=== PATIENT | male | born 1945 | race Caucasian/White ===

== ENCOUNTER 2024-02-29 21:39 | Inpatient (IN) | payer MEDICARE, SELFPAY ==
[2024-02-29] VITALS (14 sets, daily range): BP systolic 123–176; BP diastolic 66–145; PULSE 65–112; RESP 14–22; TEMP 37; O2SAT 93–96
--- NOTE | 2024-02-29 21:45 | RT.EKG_ITS ---
APPROVED REPORT Exam: Resting ECG Reason for Exam: weakness Patient Location: E HR:95 bpm ECG Measurements Heart Rate 95 AXIS PA 150 P 75 QRSd 81 QRS 73 QT 372 T 89 QTc 455 Conclusion Sinus rhythm...normal P axis, V-rate 60- 99 Anteroseptal infarct, age indeterminate...Q >35mS, T neg, V1-V2 Physician: no stemi, atypical minimal St depression in II, III, AVF
[2024-02-29 22:01] LABS: Abs Immature Grans 0.07 10^3/uL (0.0-0.06); Absolute Neutrophil Count 8.57 10^3/uL (1.2-6.7); HCT 45.8 % (40.0-50.0); HGB 15.4 g/dL (13.5-17.5); Immature Grans % 0.7; Lymphocytes % 7.2; MCH 29.2 pg (27.0-33.0); MCHC 33.6 % (32.0-36.0); MCV 87 fL (80-95); MPV 9.4 fL (8.0-11.0); Monocytes % 4.1; Platelet Count 233 10^3/uL (130-400); RBC 5.27 10^6/uL (4.36-5.78); RDW 12.7 % (11.8-14.1); RDW-SD 40.2 fL; WBC 9.74 10^3/uL (4.4-10.8)
[2024-02-29] MEDS: Prochlorperazine 10 MG/2 ML VIAL 5 MG IVP ×2 (22:01→23:15)
[2024-02-29] MEDS: Lactated Ringers 1,000 ML 1000 ML IV ×2 (22:01→23:15)
[2024-02-29] MEDS: fentaNYL 100 MCG/2 ML VIAL 50 MCG IVP (22:04)
[2024-02-29 22:18] LABS: ALT 29 U/L (16-63); AST 28 U/L (15-37); Albumin 4.3 g/dL (3.4-5.0); Alkaline Phosphatase 92 U/L (46-116); Anion Gap 15.6 mmol/L (3-11); BUN 41 mg/dL (7-18); Bilirubin, Total 0.9 mg/dL (0.2-1.0); CO2 27.4 mmol/L (21.0-32.0); CREATININE 2.2 mg/dL (0.70-1.30); Calcium 9.8 mg/dL (8.5-10.1); Chloride 98 mmol/L (98-107); Estimated GFR 29.91 (mL/min/1.73m2); Glucose 210 mg/dL (74-106); Lipase 36 U/L (16-77); Magnesium 1.8 mg/dL (1.8-2.4); Potassium 3.8 mmol/L (3.5-5.1); Sodium 141 mmol/L (136-145); Total Protein 9.1 g/dL (6.4-8.2)
[2024-02-29 22:19] LABS: Troponin I 162 ng/L (< or =60)
--- NOTE | 2024-02-29 22:19 | DI.CT_ITS ---
Exam(s) CT THORAX ABDOMEN CTA EXAM: CT THORAX ABDOMEN CTA CLINICAL HISTORY: evaluate for aneurysm or additional abdominal path. TECHNIQUE: Imaging Protocol: Axial CT angiography was performed with multi-slice acquisition and m ulti-planar and/or 3D reconstructions. CONTRAST MATERIAL: Intravenous: Omnipaque 350 contrast volume:65 mL Oral: No COMPARISON: No exams were available for comparison FINDINGS: The examination is limited due to patient motion artifact. CHEST: Tracheobronchial tree: Patent where visualized. Pulmonary parenchyma: Moderately severe centrilobular emphysematous changes are present. Calcified g ranuloma are present. There is scarring in the lung apices, right greater than left. No focal conso lidating infiltrates are seen. Pulmonary Arteries: The pulmonary arteries are not opacified adequately to assess for pulmonary embol i. The the bolus timing was aimed for maximum aortic opacification. Mediastinum and Hallie: No dominant adenopathy or fluid collection. The esophagus is unremarkable. Visualized thyroid: Unremarkable. Pleura: No effusion or pneumothorax. Heart: The heart is not dilated. Coronary artery calcifications are present. No pericardial effusion . Aorta: The ascending thoracic aorta measures 4.3 x 4.1 cm. Atherosclerotic calcification is present. There is no evidence of dissection. Soft Tissues: Unremarkable. Bones: Within normal limits for the patient's age. ABDOMEN: Abdomen: Celiac axis/mesenteric arteries: No evidence of occlusion or significant stenosis. Renal Arteries: No evidence of occlusion or significant stenosis. Mild atherosclerosis at the origin of the right renal artery. Aorta: No evidence of occlusion or significant stenosis. No aneurysm or dissection. Atheroscleroti c calcification is present. There is tortuosity of the abdominal aorta distally. Pelvis: Iliac Arteries: No evidence of occlusion or significant stenosis. Atherosclerotic calcification is present. ABDOMEN: Liver: Normal density. No measurable mass. Gallbladder and Biliary Tract: No radiodense calculus or dilation. Pancreas: Normal density, no abnormal calcifications or inflammatory process. Spleen: Normal. Adrenals: No masses seen. Kidneys: Normal size, contour and axis. 2 mm nonobstructing stone in the superior pole of the right k idney. No masses seen. Bowel: There are dilated small bowel loops throughout the visualized abdomen. Air-fluid levels are p resent throughout. The stomach is moderately distended. The visualized colon is of normal caliber. There is mild bowel wall thickening of loops of small bowel in the central abdomen. No pneumatosis. Peritoneal Cavity: No ascites, collection or mesenteric inflammatory response. No free air. Lymph Nodes: Within normal limits. Bones: Within normal limits for the patient's age. Soft Tissues: Unremarkable. IMPRESSION: 1. No evidence of aortic dissection. 2. Dilated ascending thoracic aorta measuring 4.3 x 4.1 cm. 3. Dilated small bowel loops with air-fluid levels suspicious for small bowel obstruction. RADIATION DOSE DELIVERED: Total DLP DATA REPOSITORY: All CT scans at this facility are submitted to the National Radiology Data Registry (NRDR) Dose Index Registry (DIR) with the [employer] (ACR). RADIATION OPTIMIZATION: All CT scans at this facility use at least one of these dose optimization te chniques: automated exposure control; mA and/or kV adjustment per patient size (includes targeted exa ms where dose is matched to clinical indication); or iterative reconstruction.
[2024-02-29] MEDS: Omnipaque 350 MG/ML 100 ML BTL IJ (22:31)
[2024-02-29] MEDS: Normal Saline - Diluent 50 ML VIAL IJ (22:32)
[2024-02-29 22:37] LABS: COVID-19 PCR Negative (Negative); Influenza A PCR Negative (Negative); Influenza B PCR Negative (Negative); RSV PCR Negative (Negative)
[2024-02-29 22:39] LABS: Source Nasopharynx
--- NOTE | 2024-02-29 22:58 | ED.GENADUL_ITS ---
Discharge Plan Disposition Patient Disposition: Admit to [facility] Condition: Improving Discharge Details Clinical Impression: Small bowel obstruction, Non-ST elevation MD (NSTEMI), Acute kidney injury, Elevated LDH, Dehydration Admit Date/Time: 03/01/24 02:18 Admit Provider: Manju Mcgrath Attending Provider: Manju Mcgrath Primary Care Provider: None,None ED Provider: Weston Hull Discharge Data Discharge Date/Time-TO BE ENTERED AT DEPARTURE: 03/01/24 03:40 HPI General Date/Time Provider Initiated Documentation: 02/29/24 21:45 . HPI Narrative: This 78-year-old male presents with report of epigastric and abdominal pain which started 24 hours ago and has had nausea vomiting and diarrhea. States 3 episodes of diarrhea today, multiple episodes of vomiting. Patient states prior history of appendectomy. Denies any chest pain or shortness of breath. States has been vomiting for approximately 24 hours denies any blood in vomitus. Denies any fever or chills. Denies known sick contacts. Does not smoke, drink, or use any illicit drugs. Does not currently have a healthcare provider. Denies prior history of coronary artery disease. Denies any recent flights, surgeries, long drives, calf pain or swelling or history of coagulopathy. Related Data Home Medications Medication Instructions Recorded Confirmed aspirin 81 mg chewable tablet 81 mg PO DAILY 02/29/24 02/29/24 (Marika Chewable Low Dose Aspirin) multivitamin (Daily Multi-Vitamin 1 tab PO DAILY 02/29/24 02/29/24 tablet) omega 3-vzc-qkj-fish oil 1,000 mg 1 cap PO DAILY 02/29/24 02/29/24 (120 mg-180 mg) capsule (Fish Oil) saw palmetto 320 mg capsule See Rx Instructions PO DAILY 02/29/24 02/29/24 Allergies Allergy/AdvReac Type Severity Reaction Status Date / Time isoniazid Allergy Unknown Other (See Verified 02/29/24 21:59 Comment) Penicillins Allergy Unknown Hives Verified 02/29/24 21:59 General Stated Complaint: Abd Prob SAURABH: 3 Course Vital Signs Vital signs: Vital Signs Temperature 37.0 C 02/29/24 21:48 Pulse 99 H 02/29/24 21:48 Respiratory Rate 19 02/29/24 21:48 Blood Pressure 130/79 02/29/24 21:48 Pulse Oximetry 96 02/29/24 21:48 Temperature 37.0 C 02/29/24 22:24 Temperature Source Temporal Artery Scan 02/29/24 22:24 Pulse 82 02/29/24 22:24 Respiratory Rate 22 02/29/24 22:24 Respiratory Effort Normal, Non-Labored 02/29/24 22:12 Blood Pressure 123/86 02/29/24 22:24 Blood Pressure Position Supine 02/29/24 22:24 Pulse Oximetry 93 02/29/24 22:24 Oxygen Delivery Method Room Air 02/29/24 22:24 Oxygen Flow Rate 0 02/29/24 21:48 Pain Level 8 02/29/24 22:24 Lab/Test Results Lab/Test Results: Laboratory Tests Range/Units 02/29/24 21:52 WBC (4.4-10.8) 10^3/uL 9.74 RBC (4.36-5.78) 10^6/uL 5.27 Hgb (13.5-17.5) g/dL 15.4 Hct (40.0-50.0) % 45.8 MCV (80-95) fL 87 MCH (27.0-33.0) pg 29.2 MCHC (32.0-36.0) % 33.6 RDW (11.8-14.1) % 12.7 Plt Count (130-400) 10^3/uL 233 MPV (8.0-11.0) fL 9.4 Immature Gran % 0.7 Neutrophils % 88.0 Lymphocytes % 7.2 Monocytes % 4.1 Eosinophils % 0.0 Basophils % 0.0 Nucleated RBC % (0.0-0.3) % 0.0 Absolute Neutrophils (1.2-6.7) 10^3/uL 8.57 H Absolute Lymphocytes (1.2-3.4) 10^3/uL 0.70 L Absolute Monocytes (0.1-0.8) 10^3/uL 0.40 Absolute Eosinophils (0.0-0.7) 10^3/uL 0.00 Absolute Basophils (0.0-0.2) 10^3/uL 0.00 Sodium (136-145) mmol/L 141 Potassium (3.5-5.1) mmol/L 3.8 Chloride (98-107) mmol/L 98 Carbon Dioxide (21.0-32.0) mmol/L 27.4 Anion Gap (3-11) mmol/L 15.6 H BUN (7-18) mg/dL 41 H Creatinine (0.70-1.30) mg/dL 2.2 H Est GFR (CKD-EPI 2020) (mL/min/1.73m2) 29.91 Glucose (74-106) mg/dL 210 H Calcium (8.5-10.1) mg/dL 9.8 Magnesium (1.8-2.4) mg/dL 1.8 Total Bilirubin (0.2-1.0) mg/dL 0.9 AST (15-37) U/L 28 ALT (16-63) U/L 29 Alkaline Phosphatase (46-116) U/L 92 Troponin I (< or =60) ng/L 162 H* Total Protein (6.4-8.2) g/dL 9.1 H Albumin (3.4-5.0) g/dL 4.3 Lipase (16-77) U/L 36 COVID-19 Source Nasopharynx SARS-CoV-2 (PCR) (Negative) Negative Influenza Type A (PCR) (Negative) Negative Influenza Type B (PCR) (Negative) Negative RSV (PCR) (Negative) Negative Medical Decision Making This 78-year-old male presents with report of abdominal and epigastric pain that started yesterday. He started vomiting all day and has not been able to eat or drink anything, this was followed by 3 episodes of diarrhea today States he is in terrific pain Denies any chest pain or shortness of breath. States he is still nauseous last vomiting was several hours ago. Denies any blood in vomitus He is physically tender in his abdominal region, no peritonitis, guarding No CVA tenderness, cardiac rate rhythm regular, alert and oriented, dry mucous membranes orally, pupils equal round reactive to light and accommodation, alert and oriented x 4, no peripheral edema, no rashes or lesions noted, lungs clear to auscultation bilaterally CTA was ordered for further evaluation given sharp pain and elevated troponin to evaluate for abdominal aortic aneurysm or thoracic aortic aneurysm, this was negative for dissection per my review, there is evidence of a bowel obstruction, pending radiology overread Initial troponin was elevated at 162, I suspect this is secondary to demand ischemia although patient does have some ST abnormalities without a prior EKG to compare to, again patient does not endorse any chest discomfort Will trend troponin, repeat at [address] NG tube and admit to the hospital provided the troponin does not continue to elevate Pending radiology interpretation, NG tube ordered for likely bowel obstruction, will hold on talking surgery until repeat troponin after NG tube placed, will transition care to Dr. Jamey Hull pending repeat troponin at 0049 and virtual radiology interpretation of CT EKG with some depressions in aVL V5 and V6, 2 3 aVF, no prior to compare, no evidence of injury, no chest pain, please see attendings documentation Quality:SDOH Health Related Social Needs: Health related social needs risk of homeless Critical Care Time Critical Care Time Attestation: Approximately 45 minutes of critical care time secondary to acute bowel obstruction requiring NG tube placement,, none ST elevation MD secondary to demand ischemia secondary to acute illness with continue telemetry monitoring, repeat cardiac enzyme, and ultimately admission to the hospital can for continued monitoring, NG tube to suction, surgical consultation, hospitalist consultation, diagnostic review of labs, IV fluid resuscitation secondary to JAZZ PFSH All Active Problems (Updated 03/01/24 @ 14:05 by Manju Mcgrath DO) Hx MRSA infection (Acute) Elevated troponin I level (Acute) Thoracic aortic aneurysm without rupture (Acute) Aortic atherosclerosis (Acute) Bullous emphysema (Acute) COPD (chronic obstructive pulmonary disease) (Chronic) Dehydration (Acute) Elevated LDH (Acute) Acute kidney injury (Acute) Non-ST elevation MD (NSTEMI) (Acute) secondary to demand Small bowel obstruction (Acute) Surgical History (Updated 03/01/24 @ 13:11 by Manju Mcgrath DO) S/P appendectomy open appy for rupture and abscess Social History Smoking/Tobacco Use Status: Former Tobacco Use Quit Date: 11/19/11 Smoking risk assessment performed?: Yes Alcohol Intake: never Drug use: Daily Substance use type: marijuana Housing: house Do you feel safe at home: Yes Do you feel safe in your relationship?: Yes Sign Out Sign Out Data: Sign Out Comment: SBO, pending repeat trop at 0049, ng tube, and admission Last updated by Mary Ku PA at 02/29/24 23:32
--- NOTE | 2024-02-29 23:23 | DI.VRAD_ITS ---
Addendum created by Kishor Shepherd MD on 02/29/2024 11:37:56 PM EDT: THIS REPORT CONTAINS FINDINGS THAT MAY BE CRITICAL TO PATIENT CARE. The findings were verbally communicated via telephone conference with Mary Ku at 11:24 PM EDT on 02/29/2024. The findings were acknowledged and understood. Initial report created on 02/29/2024 11:23:07 PM EDT: PROCEDURE INFORMATION: Exam: CTA Chest With Contrast CTA Abdomen With Contrast Exam date and time: 02/29/2024 10:40 PM Age: 78 years old Clinical indication: N/v, abd pain; R/O dissection; Evaluate for aneurysm or additional abdominal path TECHNIQUE: Imaging protocol: Computed tomographic angiography of the chest with contrast. Exam focused on the arteries. Computed tomographic angiography of the abdomen with contrast. Exam focused on the arteries. 3D rendering (Not supervised by radiologist): MIP and/or 3D reconstructed images were created by the technologist. Contrast material: OMNI 350; Contrast volume: 65 ml; Contrast route: INTRAVENOUS (IV); COMPARISON: No relevant prior studies available. FINDINGS: VASCULATURE: Pulmonary arteries: The pulmonary arterial system is suboptimally opacified with I.V. contrast. While no definite central pulmonary emboli are appreciated, pulmonary emboli in the distal lobar and segmental branches cannot be reliably excluded on the basis of this study. Contrast density measurement within the main pulmonary artery is 80 HU. Aorta: Normal caliber thoracic / abdominal aorta without dissection or aneurysm. Celiac trunk and mesenteric arteries: No occlusion or significant stenosis. Renal arteries: No occlusion or significant stenosis. CHEST: Lungs: No alveolar or ground glass infiltrate. Evidence of old granulomatous disease. Centrilobular emphysema. Pleural spaces: No pleural fluid collection. No pneumothorax. Heart: No pericardial effusion. ABDOMEN AND PELVIS: Liver: Liver fatty infiltration. Gallbladder and bile ducts: Unremarkable. No calcified stones. No ductal dilation. Pancreas: Minimally prominent to mm caliber pancreatic duct, otherwise normal pancreas. Spleen: Unremarkable. No splenomegaly. Adrenal glands: Unremarkable. No mass. Kidneys and ureters: No hydronephrosis. Small non-obstructing calcified stone upper pole right kidney. No perinephric stranding or perinephric fluid. Stomach and bowel: Numerous fluid-filled, dilated (up to 3.5 cm caliber) small bowel loops) - likely small bowel obstruction. Non-dilated colon. Intraperitoneal space: Please note that the peritoneal cavity is incompletely-imaged (only CTA abdomen was performed). No abdominal free air or free fluid. Numerous fluid-filled, dilated (up to 3.5 cm caliber) small bowel loops) - likely small bowel obstruction. Lymph nodes: No enlarged lymph nodes. Bones/joints: Mild spinal degenerative changes. Scoliosis. Soft tissues: Unremarkable. IMPRESSION: 1. Normal caliber thoracic / abdominal aorta without dissection or aneurysm. 2. Suboptimal IV contrast opacification of the pulmonary arterial system. No central pulmonary emboli are seen but more distal emboli cannot be reliably excluded by this study. 3. No pulmonary infiltrate or pleural fluid collection.. 4. Centrilobular emphysema. 5. Please note that the peritoneal cavity is incompletely-imaged (only CTA abdomen was performed). Numerous fluid-filled, dilated (up to 3.5 cm caliber) small bowel loops) - likely small bowel obstruction. 6. No hydronephrosis. Small non-obstructing calcified stone upper pole right kidney. Dictated and Authenticated by: Kishor Shepherd MD. Ordering:RADHA Hernandez MD
[2024-02-29 23:24] LABS: Lactate 4.7 mmol/L (0.6-1.4)
[2024-03-01] VITALS (35 sets, daily range): BP systolic 95–135; BP diastolic 38–94; PULSE 70–117; RESP 13–28; TEMP 36.1–37.1; O2SAT 90–97
--- NOTE | 2024-03-01 | DI.RAD_ITS ---
Exam(s) XR ABDOMEN FLAT PLATE EXAM: 2D digital imaging was performed. CLINICAL HISTORY: NGT placement. COMPARISON: CR,XR XR PORTABLE CHEST AP from 03/01/2024 TECHNIQUE: Supine views of the abdomen was performed. Two images were obtained. FINDINGS: LUNG BASES: Clear. BOWEL GAS PATTERN: Nondistended. FREE AIR: None. CALCIFICATIONS: No radiopaque calcifications. OSSEOUS STRUCTURES: There is a mild S-type thoracolumbar scoliosis. Degenerative changes are seen in the spine consistent with the patient's age. OTHER FINDINGS: The enteric tube has been advanced and the tip is now in the stomach. There is contr ast seen in the urinary bladder from the patient's recent CT examination. IMPRESSION: The tip of the enteric tube is now in good position within the stomach. DATA REPOSITORY: RADIATION DOSE DELIVERED:
--- NOTE | 2024-03-01 00:15 | DI.RAD_ITS ---
Exam(s) XR PORTABLE CHEST AP EXAM: XR PORTABLE CHEST AP CLINICAL HISTORY: post ng tube placement TECHNIQUE: 2D digital imaging was performed of the chest. Two images were obtained. AP views were obtained. COMPARISON: CT CT THORAX ABDOMEN CTA from 02/29/2024 FINDINGS: MEDIASTINUM: Normal. HEART: Normal. PULMONARY VASCULATURE: Normal. LUNGS: The lungs are hyperinflated consistent with underlying COPD. PLEURAL SPACE: No pleural effusion or pneumothorax. BONE:Within normal limits for the patient's age. OTHER FINDINGS:The tip of the nasogastric tube is seen above the hemidiaphragm in the distal esophagu s and should be repositioned. IMPRESSION: 1. No acute pulmonary findings. 2. The tip of the nasogastric tube is above the hemidiaphragm in the distal esophagus. It should be repositioned as it is not in the stomach. DATA REPOSITORY: RADIATION DOSE DELIVERED:
--- NOTE | 2024-03-01 00:44 | DI.VRAD_ITS ---
PROCEDURE INFORMATION: Exam: XR Chest Exam date and time: 03/01/2024 12:30 AM Age: 78 years old Clinical indication: Device placement; Post NG tube placement TECHNIQUE: Imaging protocol: Radiologic exam of the chest. Views: 1 view. COMPARISON: CT THORAX ABDOMEN CTA 02/29/2024 10:40 PM FINDINGS: Tubes, catheters and devices: Tip of nasogastric tube within the distal thoracic esophagus. Tube tip does not enter the gastric lumen. Cardiac leads superimposed over the chest. Lungs: No alveolar infiltrate. Right upper lobe calcified granulomas. COPD. Pleural spaces: No pleural fluid collection. No pneumothorax. Heart/Mediastinum: Normal heart size. Bones/joints: Unremarkable for patient age. IMPRESSION: 1. Tip of nasogastric tube within the distal thoracic esophagus. Tube tip does not enter the gastric lumen. 2. No active pulmonary disease. Dictated and Authenticated by: Kishor Shepherd MD. Ordering:SARBJIT Ontiveros MD
[2024-03-01] MEDS: Benzocaine 20% 60 ML CAN (00:52)
[2024-03-01] MEDS: Lactated Ringers 1,000 ML 200 ML IV (00:53)
[2024-03-01 00:54] LABS: Lactate 3.5 mmol/L (0.6-1.4)
[2024-03-01 01:04] LABS: Anion Gap 13.3 mmol/L (3-11); BUN 42 mg/dL (7-18); CO2 24.7 mmol/L (21.0-32.0); CREATININE 1.8 mg/dL (0.70-1.30); Chloride 101 mmol/L (98-107); Estimated GFR 38.05 (mL/min/1.73m2); Glucose 159 mg/dL (74-106); Potassium 4.1 mmol/L (3.5-5.1); Sodium 139 mmol/L (136-145)
[2024-03-01 01:15] LABS: Troponin I 205 ng/L (< or =60)
--- NOTE | 2024-03-01 01:49 | NUR.NOTE ---
Nursing Note: placed patient on 2L NC
[2024-03-01] MEDS: Prochlorperazine 10 MG/2 ML VIAL IVP (02:00)
[2024-03-01] MEDS: MORPHine 4 MG/ML SYR IVP (02:00)
[2024-03-01] MEDS: Aspirin 300 MG SUPP PR (02:21)
--- NOTE | 2024-03-01 02:23 | ED.PROG_ITS ---
Date of service: 03/01/24 Time of Service: 02:23 Medical Decision Making Patient was signed out to me by my colleague Mary Ku, please refer to HPI, physical exam, assessment and plan. At time of signout we are awaiting repeat troponin to evaluate for trend and reassessment after fluids. Patient has been given 2 L of fluids, NG tube was placed, initial NG tube was in the esophagus still, patient ripped this out. New NG tube was placed and is now suctioning stomach contents well. Patient is feeling much better. Repeat labs demonstrate an improvement of his lactate from 4.7-3.5, troponin has only mildly increased from 1 62-2 05. Creatinine after fluids is improved from 2.2-1.8. Patient is feeling much better at this time. Vital signs remained stable. EKG shows no evidence of STEMI. I did contact [facility] and discussed the case with cardiology. At this time after review of the case they feel to that this is likely just based on demand ischemia dehydration and his vomiting. Recommend continued close monitoring and serial troponins. Recommend full dose aspirin. They do not recommend heparinization at this time. I discussed the case with the hospitalist Dr. Lopez, and he agrees to be consulted for medicine consult for the NSTEMI component of the patient. I did contact the surgeon Dr. Mcgrath, she agrees for acceptance for admission for the patient. I will place bridging orders on her behalf. I have extensively reviewed the treatment plan with the patient. I have addressed all patient concerns at this time. I have also discussed the plan with the admitting physician and they agree with the current assessment and plan and have agreed to assume responsibility for the patient. All parties demonstrate verbal understanding and agreement with our assessment and plan at this time. The documentation in this chart was dictated using Narr[employer] dictation software. Please excuse any dictation errors. Quality:SDOH Health Related Social Needs: No Data to Display Critical Care Time Critical Care Time Critical Care Time: Yes Total Critical Care Time: 45 Attestation: Upon my evaluation, this patient had a high probability of imminent or life- threatening deterioration, which required my direct attention, intervention, and personal management. I have personally provided 45 minutes of critical care time exclusive of time spent on separately billable procedures. Time includes review of laboratory data, radiology results, discussion with consultants, and monitoring for potential decompensation. Interventions were performed as documented. Sign Out Sign Out Data: Sign Out Comment: SBO, pending repeat trop at 0049, ng tube, and admission Last updated by Mary Ku PA at 02/29/24 23:32 Discharge Plan Disposition Patient Disposition: Admit to [facility] Condition: Improving Discharge Details Chief Complaint: Abd Prob Clinical Impression: Small bowel obstruction, Non-ST elevation MA (NSTEMI), Acute kidney injury, Elevated LDH, Dehydration Primary Care Provider: None,None ED Provider: Weston Hull Home Meds and New Rx's Prescriptions: No Action aspirin [Marika Chewable Aspirin] 81 mg tablet,chewable 81 mg PO DAILY multivitamin [Daily Multi-Vitamin] Tablet 1 tab PO DAILY saw palmetto 320 mg capsule See Rx Instructions PO DAILY Rx Instructions: 640 orally daily; give with food (meal/snack) omega 7-tsx-wmo-fish oil [Fish Oil] 1,000 mg (120 mg-180 mg) capsule 1 cap PO DAILY
--- NOTE | 2024-03-01 03:16 | W.MEDCONSULT ---
Date of service: 03/01/24 Time of Service: 03:16 Assessment and Plan Assessment and plan (1) Small bowel obstruction: Start date: 03/01/24 Status: Acute Assessment and plan: This is a 78-year-old gentleman with acute onset of small bowel obstruction admitted under surgery for observation and possible intervention. This complicated by his lack of medical follow-up as an outpatient known cardiovascular status with elevated troponins and slightly abnormal EKG though not positive for STEMI. Continue to follow medically with surgery and treat as patient allows. (2) Non-ST elevation [place] (NSTEMI): Start date: 03/01/24 Status: Acute Assessment and plan: Full dose aspirin was given with Plavix not recommended and heparin recommended. Trend troponins and continue conversation with [facility] cardiology if rising troponins despite patient being more comfortable and asymptomatic at this time. Follow-up EKG if change in symptoms. Cardiac monitoring. Patient had at least an echocardiogram when available and further cardiovascular testing such as stress test when available. Patient is a full code. (3) Acute kidney injury: Start date: 03/01/24 Status: Acute Assessment and plan: IV hydration With Follow-Up Lab Trending Lactate and along with renal functions. Watch for fluid overload. 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 Has had multiple episodes of vomiting prior to presentation. He states that he has not slept for 3 days. Symptoms may have been going on longer than just 24 hours. He currently does not see a healthcare provider and denies any prior history of these problems. He did have an appendectomy with a ruptured appendix in the past which may attribute to adhesions with small bowel obstruction. He appears to have a small bowel obstruction by imaging and NG tube was placed with surgery admitting patient for observation and possible intervention if he is not resolved. Patient is very agitated with his lack of sleep and would not give further history or allow for exam. He was found to have elevated troponins in the ED with EKG showing sinus rhythm and possible old anterior scar with slight ST segment depressions inferiorly. There were no acute ST segment elevations. Initial troponin was 162 with repeat being 205. He is having his troponins trended with only a full dose aspirin given per rectum per recommendations of [facility] cardiology will advise no other antiplatelet therapy or heparin. It was thought that his troponins were elevated secondary to strain from his acute illness. He is not having chest pain or shortness of breath. He has no previous history of CAD. He is stressed also by acute kidney injury with creatinine elevated and lactic acidosis along with elevated anion gap. This is being corrected with IV fluid resuscitation by the admitting surgeon. Once the patient is small bowel function is resolving, he may have further evaluation of his cardiac status versus transfer to a tertiary care center if he becomes symptomatic with a small bowel obstruction. Not able to take oral therapy at this time but should consider metoprolol along with high-dose statin and daily baby aspirin. This time he is cardiovascularly stable and very upset with the fact that he has not slept and continues to be awake and interviews and treatment. He is a full code. Review of Systems Narrative: 13 point review of systems obtainable with patient refusing interview. PFSH All Active Problems Dehydration (Acute) Elevated LDH (Acute) Acute kidney injury (Acute) Non-ST elevation [place] (NSTEMI) (Acute) Small bowel obstruction (Acute) Social History Smoking/Tobacco Use Status: Former Tobacco Use Quit Date: 11/19/11 Smoking risk assessment performed?: Yes Alcohol Intake: never Drug use: Daily Substance use type: marijuana Housing: house Do you feel safe at home: Yes Do you feel safe in your relationship?: Yes Exam Narrative Exam Narrative: General: Patient is unkempt, thin and very agitated with being awakened. He has a bedsheet over his head. He appears to be alert and oriented to person, place and time. He is in moderate distress from the NG tube in place but does feel more comfortable with NG tube drainage. He refused any further physical exam. He appears very thin and malnourished. Results Last Vital Signs Temp 37.0 C 02/29/24 22:24 Pulse 93 H 03/01/24 02:46 Resp 18 03/01/24 03:00 BP 117/79 03/01/24 02:46 Pulse Ox 94 03/01/24 02:46 Labs 04/12/24 21:52 03/01/24 00:50 Labs: Laboratory Results - last 24 hr 02/29/24 02/29/24 03/01/24 21:52 23:16 00:50 WBC 9.74 RBC 5.27 Hgb 15.4 Hct 45.8 MCV 87 MCH 29.2 MCHC 33.6 RDW 12.7 Plt Count 233 MPV 9.4 Immature Gran % 0.7 Neutrophils % 88.0 Lymphocytes % 7.2 Monocytes % 4.1 Eosinophils % 0.0 Basophils % 0.0 Nucleated RBC % 0.0 Absolute Neutrophils 8.57 H Absolute Lymphocytes 0.70 L Absolute Monocytes 0.40 Absolute Eosinophils 0.00 Absolute Basophils 0.00 VBG Lactate 4.7 H* 3.5 H* Sodium 141 139 Potassium 3.8 4.1 Chloride 98 101 Carbon Dioxide 27.4 24.7 Anion Gap 15.6 H 13.3 H BUN 41 H 42 H Creatinine 2.2 H 1.8 H Est GFR (CKD-EPI 2020) 29.91 38.05 Glucose 210 H 159 H Calcium 9.8 9.0 Magnesium 1.8 Total Bilirubin 0.9 AST 28 ALT 29 Alkaline Phosphatase 92 Troponin I 162 H* 205 H* Total Protein 9.1 H Albumin 4.3 Lipase 36 COVID-19 Source Nasopharynx SARS-CoV-2 (PCR) Negative Influenza Type A (PCR) Negative Influenza Type B (PCR) Negative RSV (PCR) Negative Imaging Imaging Studies: Exam: CTA Chest With Contrast CTA Abdomen With Contrast Exam date and time: 02/29/2024 10:40 PM Age: 78 years old Clinical indication: N/v, abd pain; R/O dissection; Evaluate for aneurysm or additional abdominal path COMPARISON: No relevant prior studies available. FINDINGS: VASCULATURE: Pulmonary arteries: The pulmonary arterial system is suboptimally opacified with I.V. contrast. While no definite central pulmonary emboli are appreciated, pulmonary emboli in the distal lobar and segmental branches cannot be reliably excluded on the basis of this study. Contrast density measurement within the main pulmonary artery is 80 HU. Aorta: Normal caliber thoracic / abdominal aorta without dissection or aneurysm. Celiac trunk and mesenteric arteries: No occlusion or significant stenosis. Renal arteries: No occlusion or significant stenosis. CHEST: Lungs: No alveolar or ground glass infiltrate. Evidence of old granulomatous disease. Centrilobular emphysema. Pleural spaces: No pleural fluid collection. No pneumothorax. Heart: No pericardial effusion. ABDOMEN AND PELVIS: Liver: Liver fatty infiltration. Gallbladder and bile ducts: Unremarkable. No calcified stones. No ductal dilation. Pancreas: Minimally prominent to mm caliber pancreatic duct, otherwise normal pancreas. Spleen: Unremarkable. No splenomegaly. Adrenal glands: Unremarkable. No mass. Kidneys and ureters: No hydronephrosis. Small non-obstructing calcified stone upper pole right kidney. No perinephric stranding or perinephric fluid. Stomach and bowel: Numerous fluid-filled, dilated (up to 3.5 cm caliber) small bowel loops) - likely small bowel obstruction. Non-dilated colon. Intraperitoneal space: Please note that the peritoneal cavity is incompletely-imaged (only CTA abdomen was performed). No abdominal free air or free fluid. Numerous fluid-filled, dilated (up to 3.5 cm caliber) small bowel loops) - likely small bowel obstruction. Lymph nodes: No enlarged lymph nodes. Bones/joints: Mild spinal degenerative changes. Scoliosis. Soft tissues: Unremarkable. IMPRESSION: 1. Normal caliber thoracic / abdominal aorta without dissection or aneurysm. 2. Suboptimal IV contrast opacification of the pulmonary arterial system. No central pulmonary emboli are seen but more distal emboli cannot be reliably excluded by this study. 3. No pulmonary infiltrate or pleural fluid collection.. 4. Centrilobular emphysema. 5. Please note that the peritoneal cavity is incompletely-imaged (only CTA abdomen was performed). Numerous fluid-filled, dilated (up to 3.5 cm caliber) small bowel loops) - likely small bowel obstruction. 6. No hydronephrosis. Small non-obstructing calcified stone upper pole right kidney. Exam: XR Chest Exam date and time: 03/01/2024 12:30 AM Age: 78 years old Clinical indication: Device placement; Post NG tube placement TECHNIQUE: Imaging protocol: Radiologic exam of the chest. Views: 1 view. COMPARISON: CT THORAX ABDOMEN CTA 02/29/2024 10:40 PM FINDINGS: Tubes, catheters and devices: Tip of nasogastric tube within the distal thoracic esophagus. Tube tip does not enter the gastric lumen. Cardiac leads superimposed over the chest. Lungs: No alveolar infiltrate. Right upper lobe calcified granulomas. COPD. Pleural spaces: No pleural fluid collection. No pneumothorax. Heart/Mediastinum: Normal heart size. Bones/joints: Unremarkable for patient age. IMPRESSION: 1. Tip of nasogastric tube within the distal thoracic esophagus. Tube tip does not enter the gastric lumen. 2. No active pulmonary disease.
[2024-03-01] MEDS: Normal Saline Flush 10 ML SYR IVP ×3 (03:43→19:47)
[2024-03-01] MEDS: Ondansetron 4 MG/2 ML VIAL IVP (03:43)
[2024-03-01 06:03] LABS: Lactate 1.3 mmol/L (0.6-1.4)
[2024-03-01] MEDS: Normal Saline 1,000 ML 150 ML IV (06:08)
[2024-03-01 06:19] LABS: Anion Gap 7.7 mmol/L (3-11); BUN 45 mg/dL (7-18); CO2 30.3 mmol/L (21.0-32.0); CREATININE 1.8 mg/dL (0.70-1.30); Calcium 8.4 mg/dL (8.5-10.1); Chloride 103 mmol/L (98-107); Estimated GFR 38.05 (mL/min/1.73m2); Glucose 125 mg/dL (74-106); Magnesium 1.7 mg/dL (1.8-2.4); Potassium 4.2 mmol/L (3.5-5.1); Sodium 141 mmol/L (136-145)
[2024-03-01 06:39] LABS: Troponin I 265 ng/L (< or =60)
--- NOTE | 2024-03-01 07:30 | RT.EKG_ITS ---
APPROVED REPORT Exam: Resting ECG Reason for Exam: elevated troponin Patient Location: I HR:92 bpm ECG Measurements Heart Rate 92 AXIS FL 154 P 75 QRSd 79 QRS 74 QT 360 T 34 QTc 446 Conclusion Sinus rhythm...normal P axis, V-rate 50- 99 Atrial premature complexes...SV complexes w/ short R-R intvls Artifact in lead(s) II,III,aVR,aVL,aVF,V1,V2,V3,V5,V6
[2024-03-01 09:58] LABS: Troponin I 243 ng/L (< or =60)
[2024-03-01 12:09] LABS: Bilirubin Negative (Negative); Blood Trace-intact (Negative); Clarity Clear (Clear); Glucose Negative (Negative); Ketones Trace mg/dL (Negative); Leukocyte Esterase Negative (Negative); Nitrite Negative (Negative); Urobilinogen 0.2 mg/dL (Up to 0.2); pH 5.5 (5-8)
[2024-03-01 12:22] LABS: Epithelial Cells Rare HPF (Negative); WBC 0-2 HPF (0-5)
[2024-03-01 12:23] LABS: Bacteria Rare HPF (Negative); C & S Indicated? No; Casts 5-10 Hyaline LPF (Negative); Crystals Negative HPF (Negative); Mucus Trace (Negative)
--- NOTE | 2024-03-01 12:39 | W.PM.PROGNOT ---
Date of Service Date of service: 03/01/24 Time of Service: 12:39 Assessment and Plan Assessment and plan (1) Small bowel obstruction: Status: Acute Assessment and plan: medical management w/ NG drainage, surgerical service is handling this. So far no flatus yet. (2) Elevated troponin I level: Status: Acute Assessment and plan: abnormal troponin I elevation, [facility] cardiology was consulted yesterday and they feel that this is type II demand ischemia, repeat EKG did not show acute ischemia. He is asymptomatic, therefore I would defer any ischemic workup to outpatient. Because of the TAA, I will get TTE on Sunday. (3) Thoracic aortic aneurysm without rupture: Status: Acute Assessment and plan: 4.3 x 4.1 TAA, this needs outpatient follow up. Patient should be put on beta rd and statin and follow up CTA chest and echo in 6 months. I would get transthoracic echo either while here or upon discharge if none has been done in past year. Qualifiers: Thoracic aorta location: ascending aorta Qualified Code(s): I71.21 - Aneurysm of the ascending aorta, without rupture (4) Aortic atherosclerosis: Status: Acute (5) COPD (chronic obstructive pulmonary disease): Status: Chronic Qualifiers: COPD type: emphysema Emphysema type: unspecified Qualified Code(s): J43.9 - Emphysema, unspecified (6) Bullous emphysema: Status: Acute (7) Acute kidney injury: Status: Acute Assessment and plan: continue hydraton w/ LR, currently running at 80 mL/hr, continue iv fluid while he is NPO, when able to tolerate PO then will dc iv fluids. Subjective Subjective Interval history since last seen: Mr. Blake denies any CP or dyspnea. He says that he has no known CAD or CHF. He has hx of prior bowel perforation and laparotomy. He presented yesterday w/ acute SBO. CT chest and abdomen did show ascending TAA 4.3 cm. His troponin was elevated on admission to 162 and has risen overnight to 265 but is now on its way down as of 0930 am today. Repeat level is pending at 1335. Repeat EKG done this morning did not show any acute ST elevation or depression. He says that he is still not passing any flatus but his abdomen feels better since the NG was placed last night. [facility] cardiology was consulted last night by the ED provider and per my report from the heat transfer technician, [facility] cards felt that this is type II demand ischemia. Exam Narrative Exam Narrative: Hayden is a thin, elderly pony tailed male who is polite and conversant. He denies any pain or dyspnea Lungs: prolonged expiratory phase but no rhonchi or wheezing or rales Heart: RRR, but w/ extra systolic beats, no murmur Abdomen: scars from prior laparotomy, nontender NG draining bilious material Objective Last Vital Signs Temp 36.8 C 03/01/24 11:25 Pulse 84 03/01/24 11:25 Resp 18 03/01/24 11:25 BP 114/76 03/01/24 11:25 Pulse Ox 92 03/01/24 11:25 Laboratory Results - last 24 hr 02/29/24 02/29/24 03/01/24 21:52 23:16 00:50 WBC 9.74 RBC 5.27 Hgb 15.4 Hct 45.8 MCV 87 MCH 29.2 MCHC 33.6 RDW 12.7 Plt Count 233 MPV 9.4 Immature Gran % 0.7 Neutrophils % 88.0 Lymphocytes % 7.2 Monocytes % 4.1 Eosinophils % 0.0 Basophils % 0.0 Nucleated RBC % 0.0 Absolute Neutrophils 8.57 H Absolute Lymphocytes 0.70 L Absolute Monocytes 0.40 Absolute Eosinophils 0.00 Absolute Basophils 0.00 VBG Lactate 4.7 H* 3.5 H* Sodium 141 139 Potassium 3.8 4.1 Chloride 98 101 Carbon Dioxide 27.4 24.7 Anion Gap 15.6 H 13.3 H BUN 41 H 42 H Creatinine 2.2 H 1.8 H Est GFR (CKD-EPI 2020) 29.91 38.05 Glucose 210 H 159 H Calcium 9.8 9.0 Magnesium 1.8 Total Bilirubin 0.9 AST 28 ALT 29 Alkaline Phosphatase 92 Troponin I 162 H* 205 H* Total Protein 9.1 H Albumin 4.3 Lipase 36 Urine Color Urine Clarity Urine pH Ur Specific [place] Urine Protein Urine Ketones Urine Blood Urine Nitrite Urine Bilirubin Urine Urobilinogen Ur Leukocyte Esterase Urine RBC Urine WBC Ur Epithelial Cells Urine Crystals Urine Bacteria Urine Casts Urine Mucus Ur Culture Indicated? Urine Glucose COVID-19 Source Nasopharynx SARS-CoV-2 (PCR) Negative Influenza Type A (PCR) Negative Influenza Type B (PCR) Negative RSV (PCR) Negative 03/01/24 03/01/24 03/01/24 02:18 05:54 09:31 WBC RBC Hgb Hct MCV MCH MCHC RDW Plt Count MPV Immature Gran % Neutrophils % Lymphocytes % Monocytes % Eosinophils % Basophils % Nucleated RBC % Absolute Neutrophils Absolute Lymphocytes Absolute Monocytes Absolute Eosinophils Absolute Basophils VBG Lactate 1.3 Sodium 141 Potassium 4.2 Chloride 103 Carbon Dioxide 30.3 Anion Gap 7.7 BUN 45 H Creatinine 1.8 H Est GFR (CKD-EPI 2020) 38.05 Glucose 125 H Calcium 8.4 L Magnesium 1.7 L Total Bilirubin AST ALT Alkaline Phosphatase Troponin I Cancelled 265 H* 243 H* Total Protein Albumin Lipase Urine Color Urine Clarity Urine pH Ur Specific [place] Urine Protein Urine Ketones Urine Blood Urine Nitrite Urine Bilirubin Urine Urobilinogen Ur Leukocyte Esterase Urine RBC Urine WBC Ur Epithelial Cells Urine Crystals Urine Bacteria Urine Casts Urine Mucus Ur Culture Indicated? Urine Glucose COVID-19 Source SARS-CoV-2 (PCR) Influenza Type A (PCR) Influenza Type B (PCR) RSV (PCR) 03/01/24 11:40 WBC RBC Hgb Hct MCV MCH MCHC RDW Plt Count MPV Immature Gran % Neutrophils % Lymphocytes % Monocytes % Eosinophils % Basophils % Nucleated RBC % Absolute Neutrophils Absolute Lymphocytes Absolute Monocytes Absolute Eosinophils Absolute Basophils VBG Lactate Sodium Potassium Chloride Carbon Dioxide Anion Gap BUN Creatinine Est GFR (CKD-EPI 2020) Glucose Calcium Magnesium Total Bilirubin AST ALT Alkaline Phosphatase Troponin I Total Protein Albumin Lipase Urine Color Yellow Urine Clarity Clear Urine pH 5.5 Ur Specific [place] 1.020 Urine Protein 30 H Urine Ketones Trace H Urine Blood Trace-intact H Urine Nitrite Negative Urine Bilirubin Negative Urine Urobilinogen 0.2 Ur Leukocyte Esterase Negative Urine RBC 3-5 H Urine WBC 0-2 Ur Epithelial Cells Rare Urine Crystals Negative Urine Bacteria Rare Urine Casts 5-10 Hyaline Urine Mucus Trace Ur Culture Indicated? No Urine Glucose Negative COVID-19 Source SARS-CoV-2 (PCR) Influenza Type A (PCR) Influenza Type B (PCR) RSV (PCR) Time Spent with Patient Time Spent with Patient: 25-34 minutes Time was spent: preparing to see the patient(eg.review tests), ordering medications,tests, procedures, referring, communicating with other health animal care taker, indepentently interpreting results, counseling the patient and care coordination
--- NOTE | 2024-03-01 12:40 | PHA.REVIEW2 ---
Pharmacy Admission Review Admission Clinical Review Admission Pharmacy Review: Acute kidney injury (Acute) Non-ST elevation [place] (NSTEMI) (Acute) Small bowel obstruction (Acute) isoniazid Allergy (Unknown, Verified 02/29/24 21:59) Other (See Comment) Penicillins Allergy (Unknown, Verified 02/29/24 21:59) Hives Resuscitation Status Full Code Height 6 ft 3 in Weight 62.686 kg Pharmacy Admission Review Renal Dosing Renal Dosing: BUN 45 mg/dL (7-18) H 03/01/24 05:54 Creatinine 1.8 mg/dL (0.70-1.30) H 03/01/24 05:54 Medications needing adjustments: Reviewed (CrCl 29.99 mL/min, BUN increased from 41 to 45, SCr decreased from 2.2 to 1.8) List of meds needing interventions: Current medications are okay Anticoagulation Anticoagulation: Hgb 15.4 g/dL (13.5-17.5) 02/29/24 21:52 Hct 45.8 % (40.0-50.0) 02/29/24 21:52 Plt Count 233 10^3/uL (130-400) 02/29/24 21:52 Creatinine 1.8 mg/dL (0.70-1.30) H 03/01/24 05:54 DVT Prophylaxis: Reviewed (SCD's) Relevant Labs Relevant Labs: Sodium 141 mmol/L (136-145) 03/01/24 05:54 Potassium 4.2 mmol/L (3.5-5.1) 03/01/24 05:54 Chloride 103 mmol/L (98-107) 03/01/24 05:54 Magnesium 1.7 mg/dL (1.8-2.4) L 03/01/24 05:54 Electrolytes, C-Reactive P, ESR: Reviewed (Mg 1.7, glucose 125 at 0554) Cardiac Review Cardiac Review: Troponin I 243 ng/L (< or =60) H* 03/01/24 09:31 BP, HR, EF%: Reviewed (BP/HR WNL, Troponin decreased from 265 to 243 this morning with repeat lab pending) QTc Review QTc: Reviewed (455 from 02/29/24) IV to PO Switch IV Medications: Reviewed (acetaminophen and ondansetron - patient is currently NPO) Home Meds Home Med List reviewed: Reviewed Relevent Home Meds Not ordered & why?: aspirin, multivitamin, fish oil and saw palmetto Patient is currently NPO Current Meds Current Medication Order Review: Reviewed
--- NOTE | 2024-03-01 13:05 | HPE_ITS ---
Date of service: 03/01/24 Time of Service: 14:57 Assessment and Plan Assessment and plan (1) COPD (chronic obstructive pulmonary disease): Status: Chronic (2) Bullous emphysema: Status: Acute (3) Aortic atherosclerosis: Status: Acute (4) Thoracic aortic aneurysm without rupture: Status: Acute (5) S/P appendectomy: (6) Non-ST elevation [place] (NSTEMI): Status: Acute (7) Small bowel obstruction: Status: Acute Assessment and plan: -Most likely due to adhesive disease from previous ruptured appendix. - GI prophylaxis with Pepcid SCDs and walking Incentive spirometry NG tube decompression Will repeat x-ray for NG tube positioning Hydration Pain management Hospitalist is consulted for the troponin elevation. Currently his troponins are trending down, he is not having any chest pain. He had no ST segment changes on his EKG while he was in the ED. Cardiology felt this was due to demand and not necessarily an ischemic event. Patient was quite dehydrated when he was originally presented to the ER. Patient should have a colonoscopy once this episode has resolved to ensure that no colonic masses. This document was created with voice activated software and may contain errors. 60 mins spent with the patient today. (8) Hx MRSA infection: Status: Acute History of Present Illness Narrative: Patient is a 78-year-old male with a history of COPD who presents to the ED on 02/28 with complaints of nausea and vomiting for the past 24 hours. He had been sick for approximately 24 hours with uncontrolled vomiting and abdominal pain. , He did not vomit any blood. He did have a CT scan which does show a small bowel obstruction. He did have a vertical midline laparotomy for ruptured appendix with abscess in 2012. He has never had a bowel obstruction before. He denies any changes in his medications/diet/daily routine. He is not on any prescription medications. He is normally very active and walks regularly. He does have a trip to [place] planned in 5 days time. He did have a troponin release. The ED talk to cards at and this is thought to be from demand ischemia. Hospitalist service is seeing him for further workup for his heart. He denies any prior history of heart attack or's stroke. He is a former tobacco smoker. He does smoke marijuana daily. he denies any diabetes. He is not on any inhalers for his COPD. He is not on oxygen. It does not limit him in his activities of daily living. 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 Past surgical history is significant for tonsils and adenoids as a child, ruptured appendix with exploratory laparotomy, and closed reduction of a fracture with no hardware. He denies any problems with anesthesia. ER and hospitalist notes are reviewed. Patient currently has no chest pain or shortness of breath. Complains of pain and discomfort from the NG tube. He has had minimal output from the tube since he has been on MedSurg. He is not currently having any abdominal pain or feels nauseous. He has not passed any gas or stool. Review of Systems All systems reviewed & are unremarkable except as noted in HPI and below PFSH All Active Problems (Updated 03/01/24 @ 14:05 by Manju Mcgrath DO) Hx MRSA infection (Acute) Elevated troponin I level (Acute) Thoracic aortic aneurysm without rupture (Acute) Aortic atherosclerosis (Acute) Bullous emphysema (Acute) COPD (chronic obstructive pulmonary disease) (Chronic) Dehydration (Acute) Elevated LDH (Acute) Acute kidney injury (Acute) Non-ST elevation ND (NSTEMI) (Acute) secondary to demand Small bowel obstruction (Acute) Surgical History (Updated 03/01/24 @ 13:11 by Manju Mcgrath DO) S/P appendectomy open appy for rupture and abscess Social History Smoking/Tobacco Use Status: Former Tobacco Use Quit Date: 11/19/11 Smoking risk assessment performed?: Yes Alcohol Intake: never Drug use: Daily Substance use type: marijuana Housing: house Do you feel safe at home: Yes Do you feel safe in your relationship?: Yes Meds Allergies and Home Medications Allergies Allergy/AdvReac Type Severity Reaction Status Date / Time isoniazid Allergy Unknown Other (See Verified 02/29/24 21:59 Comment) Penicillins Allergy Unknown Hives Verified 02/29/24 21:59 Home Medications Medication Instructions Recorded Confirmed Type aspirin 81 mg chewable tablet 81 mg PO DAILY 02/29/24 02/29/24 History (Marika Chewable Low Dose Aspirin) multivitamin (Daily Multi-Vitamin 1 tab PO DAILY 02/29/24 02/29/24 History tablet) omega 5-muy-ept-fish oil 1,000 mg 1 cap PO DAILY 04/12/24 04/12/24 History (120 mg-180 mg) capsule (Fish Oil) saw palmetto 320 mg capsule See Rx Instructions PO DAILY 02/29/24 02/29/24 History Exam Const General: cooperative, healthy appearing, comfortable and no acute distress Nutritional Appearance: underweight Orientation: alert, awake and oriented x3 HENMT Ears: hearing grossly impaired ([place]) bilaterally Teeth and gingiva: poor dentition Chest Chest: normal inspection of the chest Other: Physique of chronic emphysema/COPD Resp Effort & Inspection: normal respiratory effort and able to speak in complete sentences Auscultation: clear to auscultation bilaterally Cardio Rate: regular rate Rhythm: regular rhythm GI Auscultation: hyperactive bowel sounds Other: Postsurgical changes noted. No palpable hernias. Minimal distention. Bowel sounds are hyperactive. No peritonitis Neuro General: patient alert, patient awake and patient oriented x3 Cranial Nerves: PERRL and EOM intact bilaterally Cognition: normal cognition Speech: speech normal Extrem General: no pedal edema Results Labs 02/29/24 21:52 03/01/24 05:54 Labs: Laboratory Results - last 24 hr 02/29/24 02/29/24 03/01/24 21:52 23:16 00:50 WBC 9.74 RBC 5.27 Hgb 15.4 Hct 45.8 MCV 87 MCH 29.2 MCHC 33.6 RDW 12.7 Plt Count 233 MPV 9.4 Immature Gran % 0.7 Neutrophils % 88.0 Lymphocytes % 7.2 Monocytes % 4.1 Eosinophils % 0.0 Basophils % 0.0 Nucleated RBC % 0.0 Absolute Neutrophils 8.57 H Absolute Lymphocytes 0.70 L Absolute Monocytes 0.40 Absolute Eosinophils 0.00 Absolute Basophils 0.00 VBG Lactate 4.7 H* 3.5 H* Sodium 141 139 Potassium 3.8 4.1 Chloride 98 101 Carbon Dioxide 27.4 24.7 Anion Gap 15.6 H 13.3 H BUN 41 H 42 H Creatinine 2.2 H 1.8 H Est GFR (CKD-EPI 2020) 29.91 38.05 Glucose 210 H 159 H Calcium 9.8 9.0 Magnesium 1.8 Total Bilirubin 0.9 AST 28 ALT 29 Alkaline Phosphatase 92 Troponin I 162 H* 205 H* Total Protein 9.1 H Albumin 4.3 Lipase 36 Urine Color Urine Clarity Urine pH Ur Specific [employer] Urine Protein Urine Ketones Urine Blood Urine Nitrite Urine Bilirubin Urine Urobilinogen Ur Leukocyte Esterase Urine RBC Urine WBC Ur Epithelial Cells Urine Crystals Urine Bacteria Urine Casts Urine Mucus Ur Culture Indicated? Urine Glucose COVID-19 Source Nasopharynx SARS-CoV-2 (PCR) Negative Influenza Type A (PCR) Negative Influenza Type B (PCR) Negative RSV (PCR) Negative 03/01/24 03/01/24 03/01/24 02:18 05:54 09:31 WBC RBC Hgb Hct MCV MCH MCHC RDW Plt Count MPV Immature Gran % Neutrophils % Lymphocytes % Monocytes % Eosinophils % Basophils % Nucleated RBC % Absolute Neutrophils Absolute Lymphocytes Absolute Monocytes Absolute Eosinophils Absolute Basophils VBG Lactate 1.3 Sodium 141 Potassium 4.2 Chloride 103 Carbon Dioxide 30.3 Anion Gap 7.7 BUN 45 H Creatinine 1.8 H Est GFR (CKD-EPI 2020) 38.05 Glucose 125 H Calcium 8.4 L Magnesium 1.7 L Total Bilirubin AST ALT Alkaline Phosphatase Troponin I Cancelled 265 H* 243 H* Total Protein Albumin Lipase Urine Color Urine Clarity Urine pH Ur Specific [employer] Urine Protein Urine Ketones Urine Blood Urine Nitrite Urine Bilirubin Urine Urobilinogen Ur Leukocyte Esterase Urine RBC Urine WBC Ur Epithelial Cells Urine Crystals Urine Bacteria Urine Casts Urine Mucus Ur Culture Indicated? Urine Glucose COVID-19 Source SARS-CoV-2 (PCR) Influenza Type A (PCR) Influenza Type B (PCR) RSV (PCR) 03/01/24 11:40 WBC RBC Hgb Hct MCV MCH MCHC RDW Plt Count MPV Immature Gran % Neutrophils % Lymphocytes % Monocytes % Eosinophils % Basophils % Nucleated RBC % Absolute Neutrophils Absolute Lymphocytes Absolute Monocytes Absolute Eosinophils Absolute Basophils VBG Lactate Sodium Potassium Chloride Carbon Dioxide Anion Gap BUN Creatinine Est GFR (CKD-EPI 2020) Glucose Calcium Magnesium Total Bilirubin AST ALT Alkaline Phosphatase Troponin I Total Protein Albumin Lipase Urine Color Yellow Urine Clarity Clear Urine pH 5.5 Ur Specific [employer] 1.020 Urine Protein 30 H Urine Ketones Trace H Urine Blood Trace-intact H Urine Nitrite Negative Urine Bilirubin Negative Urine Urobilinogen 0.2 Ur Leukocyte Esterase Negative Urine RBC 3-5 H Urine WBC 0-2 Ur Epithelial Cells Rare Urine Crystals Negative Urine Bacteria Rare Urine Casts 5-10 Hyaline Urine Mucus Trace Ur Culture Indicated? No Urine Glucose Negative COVID-19 Source SARS-CoV-2 (PCR) Influenza Type A (PCR) Influenza Type B (PCR) RSV (PCR) Last Vital Signs Temp 36.8 C 03/01/24 11:25 Pulse 84 03/01/24 11:25 Resp 18 03/01/24 11:25 BP 114/76 03/01/24 11:25 Pulse Ox 92 03/01/24 11:25 Time Spent Time spent with Patient: 55-74 minutes Time was spent: preparing to see the patient(eg.review tests), obtaining and/or reviewing separately otained hiistory, ordering medications,tests, procedures, referring, communicating with other health direct support professional caregiver, indepentently interpreting results, counseling the patient and care coordination
[2024-03-01 14:19] LABS: Troponin I 216 ng/L (< or =60)
--- NOTE | 2024-03-01 14:37 | DI.VRAD_ITS ---
PROCEDURE INFORMATION: Exam: XR Abdomen Exam date and time: 03/01/2024 1:54 PM Age: 78 years old Clinical indication: Device placement; Gi device; Nasogastric tube TECHNIQUE: Imaging protocol: Radiologic exam of the abdomen. Views: Frontal supine view of the abdomen. 1 View. COMPARISON: CT THORAX ABDOMEN CTA 02/29/2024 10:40 PM FINDINGS: Tubes, catheters and devices: Nasogastric tube tip is in the distal portion of the stomach. Gastrointestinal tract: Aerophagia nonobstructive bowel-gas pattern. Vasculature: Previously administered intravenous contrast has opacified the urinary bladder. Bones/joints: Fnna-[id number] degenerative changes of the osseous structures. IMPRESSION: Standard placement of the nasogastric tube. Dictated and Authenticated by: Clovis Argueta MD. Ordering:HECTOR Nunes MD
--- NOTE | 2024-03-01 14:53 | NUR.NOTE ---
Nursing Note: NGT removed at this time per MD order. tolerated well. denies nausea or pain at this time. tolerating clear liquids at this time.
[2024-03-01] MEDS: Famotidine 20 MG/2 ML VIAL IVP (14:58)
--- NOTE | 2024-03-01 18:36 | NUR.NOTE ---
Nursing Note:pt tolerating clear liquid diet, no nausea, denies pain, ambulating in [place] independently, BM this shift. makes needs known
--- NOTE | 2024-03-01 19:56 | PDOC.CMIN ---
Date of service: 03/01/24 Time of Service: 19:56 Care Management Initial Assmt Initial Assessment REASON FOR HOSPITALIZATION:: Small bowel obstruction, NSTEMI, JAZZ PREVIOUS FUNCTIONAL STATUS/SOCIAL/FAMILY SUPPORTS:: Hayden lives in [place] with a friend, Malorie. He does not have a primary care provider following him. He reportedly is not on any prescription medication, and he is very active. He is independent with ADL's at baseline. CURRENT FUNCTIONAL STATUS:: Hayden was up walking around the halls today. Per report, he was in terrible pain when in the ED. An NG tube was placed, which has had some drainage. Today, he complained of discomfort from the NG tube, which reportedly has had minimal output since being transferred to [facility]. He is no longer complaining of abdominal pain. He has not passed any gas or stool. The hospitalist was consulted for the elevated troponin, which is now trending down. [facility] cardiology was consulted who stated that this is likely type II demand ischemia. Per report, Hayden is planning a trip to [place] next week. CM will continue to follow. ADVANCE DIRECTIVES:: Not on file. Has patient been provided with info about the portal/API?: Yes Did the patient sign up for the portal?: No CODE STATUS:: Full Code INSURANCE COVERAGE / FINANCIAL ISSUES:: MCR CURRENT HOME/COMMUNITY SERVICES/EQUIPMENT:: None PRIMARY CARE PHYSICIAN:: None; CM will coordinate hospital follow up with reservations agent provider- Ame Taveras; [facility]. POTENTIAL DISCHARGE NEEDS:: Follow up appointments. PATIENT/FAMILY EDUCATION NEEDS:: Review discharge instructions and limitations, discussion of self care needs including ask me three. ANTICIPATED BARRIERS TO DISCHARGE:: None. TRANSPORTATION:: Via private vehicle by a friend. PLAN:: Anticipate Hayden will return home with no new services once medically cleared. His friend will drive him home via private vehicle. He will follow up with his PCP and discharge plan of care. CM will continue to follow. PFSH All Active Problems (Updated 03/01/24 @ 14:05 by Manju Mcgrath DO) Hx MRSA infection (Acute) Elevated troponin I level (Acute) Thoracic aortic aneurysm without rupture (Acute) Aortic atherosclerosis (Acute) Bullous emphysema (Acute) COPD (chronic obstructive pulmonary disease) (Chronic) Dehydration (Acute) Elevated LDH (Acute) Acute kidney injury (Acute) Non-ST elevation [place] (NSTEMI) (Acute) secondary to demand Small bowel obstruction (Acute) Surgical History (Updated 03/01/24 @ 13:11 by Manju Mcgrath DO) S/P appendectomy open appy for rupture and abscess Social History Smoking/Tobacco Use Status: Former Tobacco Use Quit Date: 11/19/11 Smoking risk assessment performed?: Yes Alcohol Intake: never Drug use: Daily Substance use type: marijuana Housing: house Do you feel safe at home: Yes Do you feel safe in your relationship?: Yes SDOH(Care Management) Screening Will the Patient Participate in the Screening?: Yes Do you worry about having a steady place to live?: yes In the past 12 months, have you had to go without electric, gas, oil or water in your home?: no Have you or anyone in your house had to go without enough food to eat?: no Has lack of transportation kept you from medical appointments or from doing things needed for daily living?: no Has anyone in your support network made you feel unsafe for any reason?: no Health Related Social Needs Health related social needs: housing instability, housed, with risk of homelessness(Z59.811)
[2024-03-02] MEDS: Normal Saline Flush 10 ML SYR IVP (01:17)
[2024-03-02] MEDS: Famotidine 20 MG/2 ML VIAL IVP (01:18)
--- NOTE | 2024-03-02 07:11 | PGE_ITS ---
Date of Service Date of service: 03/02/24 Time of Service: 07:11 Assessment and Plan Assessment and plan (1) Small bowel obstruction: Status: Acute Assessment and plan: NG is was removed yesterday. patient now having BM's. I think he is medically ready for discharge. I think he diana be better off at home where he can get some rest. He has no abdominal distension or pain. He should go home on stool softeners and daily Miralax to prevent future SBO. (2) Elevated troponin I level: Status: Acute Assessment and plan: believed to be d/t type II demand ischemia caused by his SBO. I would recommend follow up TTE. He has an ascending aortic aneurysm 4.3 cm and this needs follow up with repeat CTA in 6 months. He should be on BB but I will defer to his PCP. Chemical stress MPI as outpatient should also be considered especially if he requires future surgery but from the hx I got from him yesterday, he has been able to shovel snow w/out angina symptoms. Again I will defer to his PCP to follow up on this. (3) Thoracic aortic aneurysm without rupture: Status: Acute Assessment and plan: 4.3 x 4.1 TAA, this needs outpatient follow up. Patient should be put on beta rd and statin and follow up CTA chest and echo in 6 months. I would get transthoracic echo either while here or upon discharge if none has been done in past year. Qualifiers: Thoracic aorta location: ascending aorta Qualified Code(s): I71.21 - Aneurysm of the ascending aorta, without rupture (4) Aortic atherosclerosis: Status: Acute (5) COPD (chronic obstructive pulmonary disease): Status: Chronic Assessment and plan: not having any current exacerbation Qualifiers: COPD type: emphysema Emphysema type: unspecified Qualified Code(s): J43.9 - Emphysema, unspecified (6) Bullous emphysema: Status: Acute (7) Acute kidney injury: Status: Acute Assessment and plan: patient had LR going at 80 mL/h however, his iv has become blown (skin reddened over iv catheter hub); I have asked nursing to remove this Subjective Subjective Interval history since last seen: Patient has had multiple bowel movements since yesterday (liquid). He denies any abdominal pain. He wants to be discharged home. He is upset/angry because he has not been able to get any sleep since admission d/t repeated interruptions (interviews, vitals), upset over the multiple attempts needed to put in his NG, now his iv has become blown. Objective Last Vital Signs Temp 37.1 C 03/01/24 23:45 Pulse 83 03/01/24 23:45 Resp 14 03/01/24 23:45 BP 111/75 03/01/24 23:45 Pulse Ox 97 03/01/24 23:45 Laboratory Results - last 24 hr 03/01/24 03/01/24 03/01/24 09:31 11:40 13:43 Troponin I 243 H* 216 H* Urine Color Yellow Urine Clarity Clear Urine pH 5.5 Ur Specific [place] 1.020 Urine Protein 30 H Urine Ketones Trace H Urine Blood Trace-intact H Urine Nitrite Negative Urine Bilirubin Negative Urine Urobilinogen 0.2 Ur Leukocyte Esterase Negative Urine RBC 3-5 H Urine WBC 0-2 Ur Epithelial Cells Rare Urine Crystals Negative Urine Bacteria Rare Urine Casts 5-10 Hyaline Urine Mucus Trace Ur Culture Indicated? No Urine Glucose Negative Time Spent with Patient Time Spent with Patient: <25 minutes Time was spent: preparing to see the patient(eg.review tests), referring, communicating with other health career specialist, indepentently interpreting results, counseling the patient and care coordination
[2024-03-02 07:49] VITALS: BP 135/91; PULSE 77; RESP 17; TEMP 36; O2SAT 95
[2024-03-02 09:44] LABS: Anion Gap 10.2 mmol/L (3-11); BUN 29 mg/dL (7-18); CO2 28.8 mmol/L (21.0-32.0); CREATININE 1.3 mg/dL (0.70-1.30); Calcium 8.3 mg/dL (8.5-10.1); Chloride 101 mmol/L (98-107); Estimated GFR 56.23 (mL/min/1.73m2); Glucose 124 mg/dL (74-106); Magnesium 1.5 mg/dL (1.8-2.4); Potassium 3.7 mmol/L (3.5-5.1); Sodium 140 mmol/L (136-145)
[2024-03-02 09:47] LABS: Troponin I 114 ng/L (< or =60)
--- NOTE | 2024-03-02 10:34 | DSE_ITS ---
Date of service: 03/02/24 Time of Service: 10:35 DS: Diagnosis Discharge Diagnosis (1) Small bowel obstruction: Status: Acute (2) Elevated troponin I level: Status: Acute (3) Thoracic aortic aneurysm without rupture: Status: Acute (4) Aortic atherosclerosis: Status: Acute (5) COPD (chronic obstructive pulmonary disease): Status: Chronic (6) Bullous emphysema: Status: Acute (7) Acute kidney injury: Status: Acute Discharge Plan Disposition Patient Disposition: Home Condition: Improving Condition: Improving Discharge Details Reason For Visit: Small bowel obstruction, NSTEMI, acute kidney... Admit Date/Time: 03/01/24 02:18 Admit Provider: Manju Mcgrath Attending Provider: Manju Mcgrath Primary Care Provider: None,None Hospital Course Hospital Course: see addendum Home Meds and New Rx's Prescriptions: No Action aspirin [Marika Chewable Aspirin] 81 mg tablet,chewable 81 mg PO DAILY multivitamin [Daily Multi-Vitamin] Tablet 1 tab PO DAILY saw palmetto 320 mg capsule See Rx Instructions PO DAILY Rx Instructions: 640 orally daily; give with food (meal/snack) omega 7-gwz-mnr-fish oil [Fish Oil] 1,000 mg (120 mg-180 mg) capsule 1 cap PO DAILY Discharge Instructions Additional Instructions: -No driving for 24 hrs -Follow-up with Dr. Mcgrath upon return from trip. [facility] [phone] -soft diet: No beef/pork raw vegetables x1 -week. Cooked vegetables are fine -no straining to move bowels - if you do not move your bowels daily take a dose of OTC Miralax or MiraLAX -You may find that your appetite is smaller. Eat 3-6 small meals throughout the day. It is important to drink lots of water after hospitalization, 6-10 glasses a day. -If you were given an incentive spirometry (breathing focusing machine operator?), continue to do this 10x/hour while awake. -We do want you up walking, at least 5-6 times per day. This is very important to prevent pneumonia and blood clots. You can climb stairs, take them slowly. -You may find that you are very tired after hospitalization- this is normal. -Pulmonary clinic Dr. Shukla [phone] -Consider wearing a pair of knee-high 20 to 30 mm compression stockings for long-haul flights. You can get these at [employer] or order from [employer]. Gastrointestinal Soft Diet Overview Overview What is a gastrointestinal soft diet? This diet is soft in texture, low in fiber, and easy to digest. The goal is to decrease) ?in the bowel that may cause and discomfort. This diet is often used after abdominal surgery or as a transitional diet after flares. Meats & Meat Substitutes ?? Foods Allowed: Chicken, turkey, fish, tender cuts of beef and pork, ground meats, eggs, creamy nut butters, tofu, skinless hot dogs, sausage patties without whole spices ?? Foods to Avoid : Tough, fibrous meats with gristle, meat with casings (hot dogs, sausage, kielbasa), lunch meats with whole spices, shellfish, beans, chunky peanut butter, nuts Fruits and Juices ?? Foods Allowed: Fruit juices without pulp, banana, avocado, applesauce, canned peaches and pears, cooked fruit without the skin/seeds.? Ground or over- cooked fruits.? Fruits ground finely in a ?smoothie?. ?? Foods to Avoid: Juices with pulp, fresh fruit (except banana and avocado), dried fruits, canned fruit cocktail and pineapple, coconut, frozen/thawed berries Vegetables ?? Foods Allowed: Well-cooked or canned vegetables, potatoes without skin, tomato sauces, vegetable juice ?? Foods to Avoid: Raw vegetables, all corn, all mushrooms, stewed tomatoes, potato skins, stir-hannah vegetables, sauerkraut, pickles, olives, all dried beans, peas, and legumes Cereals and Grains ?? Foods Allowed: Low- fiber dry or cooked cereals (less than 2 grams fiber per serving), white rice, pasta, macaroni, or noodles ?? Foods to Avoid: Cereals with nuts, berries, dried fruits, whole grain cereals, bran cereals, granola, brown or wild rice, whole grain pasta Breads and Crackers ?? Foods Allowed: White/refined breads and rolls, plain bagel, toast, plain crackers, mariel crackers ?? Foods to Avoid: Whole grain breads- including white whole grain; bread/ rolls with raisins, nuts or seeds, multi-grain crackers Dairy ?? Foods Allowed: Milk, cheese, yogurt, milkshakes, pudding, ice cream, cottage cheese, sherbet ;?lactose free or low lactose versions if lactose intolerant ?? Foods to Avoid: Dairy product mixed with fresh fruit (except banana), berries, nuts or seeds Desserts ?? Foods Allowed: Plain cake, pudding, custard, ice cream, sherbet, gelatin, fruit whips ?? Foods to Avoid: Any dessert that contains nuts, dried fruits, coconut, or fruits with seeds Herbs and Spices ?? Foods Allowed: All ground spices or herbs, salt ?? Foods to Avoid: Whole spices such as peppercorns, whole cloves, anise seeds, celery seeds, song, akash seeds, and fresh herbs Snacks/Other Foods ?? Foods Allowed: Sugar, honey, jelly, mayonnaise, mustard, soy sauce, oil, bu tter, margarine, marshmallows, cookies without dried fruits or nuts, snack chips and pretzels using refined flours ?? Foods to Avoid: Carbonated beverages, jams or jellies with seeds, popcorn After several weeks, slowly start to reintroduce the ?Foods to Avoid? back into your diet unless your doctor has told you otherwise. Try a small portion of one of these foods each day. If it does not bother you within 24 hours, it can be added to your diet. Continue to add new foods in this way. Some people may continue to have food sensitivities and may need to continue to avoid certain foods. If you cannot tolerate a food, avoid that food for a few weeks before you try it again. Guidelines when eating 1.??? Avoid any food that you cannot tolerate or that causes gas, bloating, or stomach pain. 2.??? Make time for your meals. Do not eat while you are in a hurry. Cut your food into small pieces. Chew each bite to a mashed potato consistency. Do not eat when you cannot concentrate on chewing well. 3.??? Drink at least 6-8 cups of fluid per day? Fluids include: water, coffee, tea, juice, milk, popsicles, soups, gelatin, pudding, ice cream, sherbet, and yogurt. In addition, choose caffeine-free beverages more often, especially if you are having?diarrhea. 4.??? A daily multivitamin may be recommended if diet is limited in amounts or variety of foods. Do not take any herbal supplements without first checking with your doctor. ` Activity:: Activity as Tolerated Equipment/Supplies:: No Equipment Needed Diet:: Soft diet for the next 2 to 3 days DS: Summary Time Spent with Patient providing and/or coordinating discharge services: Less than 30 minutes Status at Discharge Functional status at discharge: independent ambulation Overall status at discharge: patient is progressing back to baseline Mental Status: mental status grossly normal Speech and Movement: speech and movement normal Mood: congruent mood Affect: normal affect Quality:SDOH Health Related Social Needs: Health related social needs risk of homeless Exam Psych Mental Status: mental status grossly normal Speech and Movement: speech and movement normal Mood: congruent mood Affect: normal affect DS: Data Vitals/I&O Vitals and I&O: Vital Signs Temperature 36.0 C L 03/02/24 07:49 Temperature Source Tympanic 03/02/24 07:49 Pulse 77 03/02/24 07:49 Pulse Rhythm Irregular 03/01/24 21:55 Pulse 95 H 03/01/24 03:00 Respiratory Rate 17 03/02/24 07:49 Respiratory Effort Normal 03/01/24 21:55 Respiratory Depth Shallow 03/01/24 21:55 Respiratory Pattern Normal 03/01/24 21:55 Blood Pressure 135/91 H 03/02/24 07:49 Blood Pressure Mean 91 03/01/24 02:46 Blood Pressure Position Supine 02/29/24 22:24 Pulse Oximetry 95 03/02/24 07:49 Oxygen Delivery Method Room Air 03/02/24 07:49 Oxygen Flow Rate 0 03/02/24 07:49 Pain Level 0 03/02/24 07:49 Comment RN in room at this time 03/01/24 15:05 Intake & Output 03/01/24 03/01/24 03/02/24 11:59 23:59 11:59 Intake Total 2000 / 4500 2500 / 4500 Output Total 400 / 1775 1375 / 1775 1400 / 1400 Balance 1600 / 2725 1125 / 2725 -1380 / -1380 Weight 62.686 kg 61.6 kg Intake: IV 2000 / 3010 1010 / 3010 Oral 1490 / 1490 Output: Gastric Drainage 400 / 400 Right Nare 400 / 400 Urine 1375 / 1375 1400 / 1400 Other: Urine Color Yellow Yellow Urine Appearance Clear Clear Urine Odor None None Comment pT voids independently. Stool Size Moderate Stool Characteristics Liquid Voiding Methods Urinal Toilet Data Completed and Pending Labs on day of discharge: Labs from last 24 hours 03/02/24 03/01/24 03/01/24 09:19 13:43 11:40 Sodium 140 Potassium 3.7 Chloride 101 Carbon Dioxide 28.8 Anion Gap 10.2 BUN 29 H Creatinine 1.3 Est GFR (CKD-EPI 2020) 56.23 Glucose 124 H Calcium 8.3 L Magnesium 1.5 L Troponin I 114 H* 216 H* Urine Color Yellow Urine Clarity Clear Urine pH 5.5 Ur Specific [place] 1.020 Urine Protein 30 H Urine Ketones Trace H Urine Blood Trace-intact H Urine Nitrite Negative Urine Bilirubin Negative Urine Urobilinogen 0.2 Ur Leukocyte Esterase Negative Urine RBC 3-5 H Urine WBC 0-2 Ur Epithelial Cells Rare Urine Crystals Negative Urine Bacteria Rare Urine Casts 5-10 Hyaline Urine Mucus Trace Ur Culture Indicated? No Urine Glucose Negative PFSH All Active Problems (Updated 03/01/24 @ 14:05 by Manju Mcgrath DO) Hx MRSA infection (Acute) Elevated troponin I level (Acute) Thoracic aortic aneurysm without rupture (Acute) Aortic atherosclerosis (Acute) Bullous emphysema (Acute) COPD (chronic obstructive pulmonary disease) (Chronic) Dehydration (Acute) Elevated LDH (Acute) Acute kidney injury (Acute) Non-ST elevation [place] (NSTEMI) (Acute) secondary to demand Small bowel obstruction (Acute) Surgical History (Updated 03/01/24 @ 13:11 by Manju Mcgrath DO) S/P appendectomy open appy for rupture and abscess Social History Smoking/Tobacco Use Status: Former Tobacco Use Quit Date: 11/19/11 Smoking risk assessment performed?: Yes Alcohol Intake: never Drug use: Daily Substance use type: marijuana Housing: house Do you feel safe at home: Yes Do you feel safe in your relationship?: Yes Time Spent with Patient Time Spent with Patient: <45 minutes Time was spent: preparing to see the patient(eg.review tests), obtaining and/or reviewing separately otained hiistory, ordering medications,tests, procedures, referring, communicating with other health geriatric personal care aide, indepentently interpreting results, counseling the patient and care coordination
--- NOTE | 2024-03-02 10:46 | DSE_ITS ---
Date of service: 03/02/24 Time of Service: 10:47 DS: Diagnosis Discharge Diagnosis (1) Small bowel obstruction: Status: Acute (2) Elevated troponin I level: Status: Acute (3) Thoracic aortic aneurysm without rupture: Status: Acute (4) Aortic atherosclerosis: Status: Acute (5) COPD (chronic obstructive pulmonary disease): Status: Chronic (6) Bullous emphysema: Status: Acute (7) Acute kidney injury: Status: Acute Discharge Plan Disposition Patient Disposition: Home Condition: Improving Discharge Details Reason For Visit: Small bowel obstruction, NSTEMI, acute kidney... Admit Date/Time: 03/01/24 02:18 Admit Provider: Manju Mcgrath Attending Provider: Manju Mcgrath Primary Care Provider: None,None Hospital Course Hospital Course: see addendum Home Meds and New Rx's Prescriptions: No Action aspirin [Marika Chewable Aspirin] 81 mg tablet,chewable 81 mg PO DAILY multivitamin [Daily Multi-Vitamin] Tablet 1 tab PO DAILY saw palmetto 320 mg capsule See Rx Instructions PO DAILY Rx Instructions: 640 orally daily; give with food (meal/snack) omega 3-mtw-oxe-fish oil [Fish Oil] 1,000 mg (120 mg-180 mg) capsule 1 cap PO DAILY Discharge Instructions Additional Instructions: -No driving for 24 hrs -Follow-up with Dr. Mcgrath upon return from trip. [facility] [phone] -soft diet: No beef/pork raw vegetables x1 -week. Cooked vegetables are fine -no straining to move bowels - if you do not move your bowels daily take a dose of OTC Miralax or MiraLAX -You may find that your appetite is smaller. Eat 3-6 small meals throughout the day. It is important to drink lots of water after hospitalization, 6-10 glasses a day. -You were given a Acapella (breathing adult literacy teacher?), continue to do this 6x/hour while awake. -We do want you up walking, at least 5-6 times per day. This is very important to prevent pneumonia and blood clots. You can climb stairs, take them slowly. -You may find that you are very tired after hospitalization- this is normal. -Pulmonary clinic Dr. Shukla [phone] -Consider wearing a pair of knee-high 20 to 30 mm compression stockings for long-haul flights. You can get these at [employer] or order from [employer]. Gastrointestinal Soft Diet Overview Overview What is a gastrointestinal soft diet? This diet is soft in texture, low in fiber, and easy to digest. The goal is to decrease) ?in the bowel that may cause and discomfort. This diet is often used after abdominal surgery or as a transitional diet after flares. Meats & Meat Substitutes ?? Foods Allowed: Chicken, turkey, fish, tender cuts of beef and pork, ground meats, eggs, creamy nut butters, tofu, skinless hot dogs, sausage patties without whole spices ?? Foods to Avoid : Tough, fibrous meats with gristle, meat with casings (hot dogs, sausage, kielbasa), lunch meats with whole spices, shellfish, beans, chunky peanut butter, nuts Fruits and Juices ?? Foods Allowed: Fruit juices without pulp, banana, avocado, applesauce, canned peaches and pears, cooked fruit without the skin/seeds.? Ground or over- cooked fruits.? Fruits ground finely in a ?smoothie?. ?? Foods to Avoid: Juices with pulp, fresh fruit (except banana and avocado), dried fruits, canned fruit cocktail and pineapple, coconut, frozen/thawed berries Vegetables ?? Foods Allowed: Well-cooked or canned vegetables, potatoes without skin, tomato sauces, vegetable juice ?? Foods to Avoid: Raw vegetables, all corn, all mushrooms, stewed tomatoes, potato skins, stir-hannah vegetables, sauerkraut, pickles, olives, all dried beans, peas, and legumes Cereals and Grains ?? Foods Allowed: Low- fiber dry or cooked cereals (less than 2 grams fiber per serving), white rice, pasta, macaroni, or noodles ?? Foods to Avoid: Cereals with nuts, berries, dried fruits, whole grain cereals, bran cereals, granola, brown or wild rice, whole grain pasta Breads and Crackers ?? Foods Allowed: White/refined breads and rolls, plain bagel, toast, plain crackers, mariel crackers ?? Foods to Avoid: Whole grain breads- including white whole grain; bread/ rolls with raisins, nuts or seeds, multi-grain crackers Dairy ?? Foods Allowed: Milk, cheese, yogurt, milkshakes, pudding, ice cream, cottage cheese, sherbet ;?lactose free or low lactose versions if lactose intolerant ?? Foods to Avoid: Dairy product mixed with fresh fruit (except banana), berries, nuts or seeds Desserts ?? Foods Allowed: Plain cake, pudding, custard, ice cream, sherbet, gelatin, fruit whips ?? Foods to Avoid: Any dessert that contains nuts, dried fruits, coconut, or fruits with seeds Herbs and Spices ?? Foods Allowed: All ground spices or herbs, salt ?? Foods to Avoid: Whole spices such as peppercorns, whole cloves, anise seeds, celery seeds, song, akash seeds, and fresh herbs Snacks/Other Foods ?? Foods Allowed: Sugar, honey, jelly, mayonnaise, mustard, soy sauce, oil, butter, margarine, marshmallows, cookies without dried fruits or nuts, snack chips and pretzels using refined flours ?? Foods to Avoid: Carbonated beverages, jams or jellies with seeds, popcorn After several weeks, slowly start to reintroduce the ?Foods to Avoid? back into your diet unless your doctor has told you otherwise. Try a small portion of one of these foods each day. If it does not bother you within 24 hours, it can be added to your diet. Continue to add new foods in this way. Some people may continue to have food sensitivities and may need to continue to avoid certain foods. If you cannot tolerate a food, avoid that food for a few weeks before you try it again. Guidelines when eating 1.??? Avoid any food that you cannot tolerate or that causes gas, bloating, or stomach pain. 2.??? Make time for your meals. Do not eat while you are in a hurry. Cut your food into small pieces. Chew each bite to a mashed potato consistency. Do not eat when you cannot concentrate on chewing well. 3.??? Drink at least 6-8 cups of fluid per day? Fluids include: water, coffee, tea, juice, milk, popsicles, soups, gelatin, pudding, ice cream, sherbet, and yogurt. In addition, choose caffeine-free beverages more often, especially if you are having?diarrhea. 4.??? A daily multivitamin may be recommended if diet is limited in amounts or variety of foods. Do not take any herbal supplements without first checking with your doctor. ` Activity:: Activity as Tolerated Equipment/Supplies:: No Equipment Needed Diet:: Soft diet for the next 2 to 3 days Discharge Orders Discharge Orders: Discharge Order (Routine); Ordered 03/02/24 Ordered By: Manju Mcgrath DS: Summary Time Spent with Patient providing and/or coordinating discharge services: Less than 30 minutes Status at Discharge Functional status at discharge: independent ambulation Overall status at discharge: patient is progressing back to baseline Mental Status: mental status grossly normal Speech and Movement: speech and movement normal Mood: congruent mood Affect: normal affect Quality:SDOH Health Related Social Needs: Health related social needs risk of homeless Exam Psych Mental Status: mental status grossly normal Speech and Movement: speech and movement normal Mood: congruent mood Affect: normal affect DS: Data Vitals/I&O Vitals and I&O: Vital Signs Temperature 36.0 C L 03/02/24 07:49 Temperature Source Tympanic 03/02/24 07:49 Pulse 77 03/02/24 07:49 Pulse Rhythm Irregular 03/01/24 21:55 Pulse 95 H 03/01/24 03:00 Respiratory Rate 17 03/02/24 07:49 Respiratory Effort Normal 03/01/24 21:55 Respiratory Depth Shallow 03/01/24 21:55 Respiratory Pattern Normal 03/01/24 21:55 Blood Pressure 135/91 H 03/02/24 07:49 Blood Pressure Mean 91 03/01/24 02:46 Blood Pressure Position Supine 02/29/24 22:24 Pulse Oximetry 95 03/02/24 07:49 Oxygen Delivery Method Room Air 03/02/24 07:49 Oxygen Flow Rate 0 03/02/24 07:49 Pain Level 0 03/02/24 07:49 Comment RN in room at this time 03/01/24 15:05 Intake & Output 03/01/24 03/01/24 03/02/24 11:59 23:59 11:59 Intake Total 2000 / 4500 2500 / 4500 20 / 20 Output Total 400 / 1775 1375 / 1775 1400 / 1400 Balance 1600 / 2725 1125 / 2725 -1380 / -1380 Weight 62.686 kg 61.6 kg Intake: IV 2000 / 3010 1010 / 3010 20 / 20 Oral 1490 / 1490 Output: Gastric Drainage 400 / 400 Right Nare 400 / 400 Urine 1375 / 1375 1400 / 1400 Other: Urine Color Yellow Yellow Urine Appearance Clear Clear Urine Odor None None Comment pT voids independently. Stool Size Moderate Stool Characteristics Liquid Voiding Methods Urinal Toilet Data Completed and Pending Labs on day of discharge: Labs from last 24 hours 03/02/24 03/01/24 03/01/24 09:19 13:43 11:40 Sodium 140 Potassium 3.7 Chloride 101 Carbon Dioxide 28.8 Anion Gap 10.2 BUN 29 H Creatinine 1.3 Est GFR (CKD-EPI 2020) 56.23 Glucose 124 H Calcium 8.3 L Magnesium 1.5 L Troponin I 114 H* 216 H* Urine Color Yellow Urine Clarity Clear Urine pH 5.5 Ur Specific [place] 1.020 Urine Protein 30 H Urine Ketones Trace H Urine Blood Trace-intact H Urine Nitrite Negative Urine Bilirubin Negative Urine Urobilinogen 0.2 Ur Leukocyte Esterase Negative Urine RBC 3-5 H Urine WBC 0-2 Ur Epithelial Cells Rare Urine Crystals Negative Urine Bacteria Rare Urine Casts 5-10 Hyaline Urine Mucus Trace Ur Culture Indicated? No Urine Glucose Negative PFSH All Active Problems (Updated 03/01/24 @ 14:05 by Manju Mcgrath, DO) Hx MRSA infection (Acute) Elevated troponin I level (Acute) Thoracic aortic aneurysm without rupture (Acute) Aortic atherosclerosis (Acute) Bullous emphysema (Acute) COPD (chronic obstructive pulmonary disease) (Chronic) Dehydration (Acute) Elevated LDH (Acute) Acute kidney injury (Acute) Non-ST elevation [place] (NSTEMI) (Acute) secondary to demand Small bowel obstruction (Acute) Surgical History (Updated 04/13/24 @ 13:11 by Manju Mcgrath DO) S/P appendectomy open appy for rupture and abscess Social History Smoking/Tobacco Use Status: Former Tobacco Use Quit Date: 11/19/11 Smoking risk assessment performed?: Yes Alcohol Intake: never Drug use: Daily Substance use type: marijuana Housing: house Do you feel safe at home: Yes Do you feel safe in your relationship?: Yes Time Spent with Patient Time Spent with Patient: <45 minutes Time was spent: preparing to see the patient(eg.review tests), obtaining and/or reviewing separately otained hiistory, ordering medications,tests, procedures, referring, communicating with other health manager care management, indepentently interpreting results, counseling the patient and care coordination
--- NOTE | 2024-03-02 16:48 | PDOC.CMDIS ---
Date of service: 03/02/24 Time of Service: 16:48 LACE Index Scoring Tool Questions: Length of Stay (in days): 1 Was the patient admitted via the E.D.?: Yes Comorbidities: Previous M.I. and Chronic Pulmonary Disease E.D. Visits: 0 Answers: Total Score: 7 Risk of Readmission: Low Risk Care Management Discharge Plan Reason for Hospitalization: Small bowel obstruction, NSTEMI, JAZZ Discharge Plan: Hayden returned home today with no new services. He was driven home via private vehicle by a friend. He will follow up with his PCP and discharge plan of care. Patient/Family Education Needs: Review discharge instructions and limitations, discussion of self care needs including ask me three. SDOH Health Related Social Needs: Health related social needs risk of homeless Health related social needs: housing instability, housed, with risk of homelessness(Z59.811)
== END 2024-03-02 12:50 | disposition home or self-care (01) | DRG 388 ==
LOC: ER 03-01 02:40 → MS 03-01 03:19
PROVIDERS: Family Medicine; Physician Assistant; Admitting Provider Surgery; Emergency Provider Student in an Organized Health Care Education/Training Program; Visit Provider Surgery
DX: K56.50 Intestinal adhesions [bands], unspecified as to partial versus complete obstruction (principal); I21.A1 Myocardial infarction type 2; E87.20 Acidosis, unspecified; N17.9 Acute kidney failure, unspecified; Z68.1 Body mass index [BMI] 19.9 or less, adult; I71.21 Aneurysm of the ascending aorta, without rupture; I70.0 Atherosclerosis of aorta; J43.9 Emphysema, unspecified; Z90.49 Acquired absence of other specified parts of digestive tract; E86.0 Dehydration; Z86.14 Personal history of Methicillin resistant Staphylococcus aureus infection; Z87.891 Personal history of nicotine dependence; R63.6 Underweight
CPT/HCPCS: 00123; 36415; 71275; 74175; 80048; 80053; 83690; 87637; 93005; 96361; 96374; 96375; 96376; 99222; 99238; 99291; 71045; 74018; 81003; 81015; 83605; 83735; 84484; 85025; 93010; 94640; 94667; 99231; J0780; J2270; J2405; J3010; J3490